=== PATIENT | male | born 1945 | race Caucasian/White ===

== ENCOUNTER 2021-01-29 17:25 | Inpatient (IN) | payer MEDICARE ==
[~2021-01-29] VITALS: Ht 167.6 cm; Wt 90.7 kg
[2021-01-29 19:11] LABS: BASOPHILS % 0.1 % (0.0-1.0); EOSINOPHILS # (AUTO) 0.1 (0.0-0.4); EOSINOPHILS % 0.7 % (0.0-6.0); HEMOGLOBIN 11.7 g/dL (14.0-18.0); LYMPHOCYTES # (AUTO) 0.5 (1.0-3.2); LYMPHOCYTES % 5.3 % (18.0-39.1); MEAN CORPUSCULAR HGB CONC 28.5 g/dL (31-35); MEAN CORPUSCULAR VOLUME 108.8 fL (81-99); MONOCYTES # (AUTO) 0.8 (0.2-0.8); MONOCYTES % 8.2 % (4.4-11.3); NEUTROPHILS % 85.1 % (38.7-80.0); PLATELET COUNT 233 x10e3/uL (140-360); RED BLOOD COUNT 3.77 x10e6/uL (4.3-5.7); RED CELL DISTRIBUTION WIDTH 17.3 % (11.7-14.4)
[2021-01-29] MEDS ORDERED: FUROSEMIDE INJ 10 MG/ML 4 ML VIAL IV ONE (19:15)
[2021-01-29 19:33] LABS: ALBUMIN 3.2 g/dL (3.5-5.0); ALBUMIN/GLOBULIN RATIO 0.7 (0.8-2.0); ANION GAP 13.7 mmol/L (8-16); CALCIUM 8.9 mg/dL (8.4-10.2); CREATININE, SERUM 0.96 mg/dL (0.72-1.25); POTASSIUM 3.7 mmol/L (3.5-5.1)
[2021-01-29 23:00] VITALS: BP 128/69
[2021-01-29 23:45] VITALS: BP 130/75
[2021-01-30] VITALS (7 sets, daily range): BP systolic 99–115; BP diastolic 62–79
[2021-01-30] MEDS ORDERED: TYLENOL325 MG PO (04:54)
[2021-01-30] MEDS ORDERED: AMIODARONE HCL100 MG PO (04:54)
[2021-01-30] MEDS ORDERED: ARICEPT5 MG PO (04:54)
[2021-01-30] MEDS ORDERED: MAGNESIUM OXID400 MG PO (04:54)
[2021-01-30] MEDS ORDERED: METOPROLOL TART25 MG PO (04:54)
[2021-01-30] MEDS ORDERED: ZESTRIL2.5 MG PO (04:54)
[2021-01-30] MEDS ORDERED: PLAVIX75 MG PO (04:54)
[2021-01-30] MEDS ORDERED: SPIRONOLACTONE25 MG PO (04:54)
[2021-01-30] MEDS ORDERED: LASIX40 MG PO (04:54)
[2021-01-30] MEDS ORDERED: ASPIRIN81 MG PO (04:54)
[2021-01-30] MEDS: ACETAMINOPHEN 325 MG TAB PO SCH ×2 (05:24→12:00)
[2021-01-30 07:43] LABS: BASOPHILS % 0.2 % (0.0-1.0); EOSINOPHILS # (AUTO) 0.1 (0.0-0.4); HEMATOCRIT 37.4 % (38.2-49.6); HEMOGLOBIN 10.9 g/dL (14.0-18.0); LYMPHOCYTES # (AUTO) 0.7 (1.0-3.2); LYMPHOCYTES % 7.9 % (18.0-39.1); MEAN CORPUSCULAR HEMOGLOBIN 31.1 pg (28-32); MEAN CORPUSCULAR HGB CONC 29.1 g/dL (31-35); MEAN CORPUSCULAR VOLUME 106.9 fL (81-99); MONOCYTES # (AUTO) 0.7 (0.2-0.8); MONOCYTES % 8.7 % (4.4-11.3); NEUTROPHILS # (AUTO) 6.7 (2.1-6.9); NEUTROPHILS % 81.5 % (38.7-80.0); PLATELET COUNT 220 x10e3/uL (140-360); RED CELL DISTRIBUTION WIDTH 17.1 % (11.7-14.4)
[2021-01-30 07:48] LABS: ALBUMIN 2.8 g/dL (3.5-5.0); ALBUMIN/GLOBULIN RATIO 0.8 (0.8-2.0); ANION GAP 12.6 mmol/L (8-16); CALCIUM 8.5 mg/dL (8.4-10.2); CREATININE, SERUM 0.92 mg/dL (0.72-1.25); POTASSIUM 3.6 mmol/L (3.5-5.1)
[2021-01-30] MEDS ORDERED: FUROSEMIDE 40 MG TAB PO SCH (09:00)
[2021-01-30] MEDS: SPIRONOLACTONE 25 MG TAB PO SCH (09:05)
[2021-01-30] MEDS: ASPIRIN 81 MG CHEW TAB PO SCH (09:06)
[2021-01-30] MEDS: AMIODARONE HCL 200 MG TAB PO SCH (09:06)
[2021-01-30] MEDS: MAGNESIUM OXIDE 400 MG TAB PO SCH (09:07)
[2021-01-30] MEDS: METOPROLOL TARTRATE 25 MG TAB PO SCH ×3 (09:07→21:00)
[2021-01-30] MEDS: CLOPIDOGREL BISULFATE 75 MG TAB PO SCH (09:08)
[2021-01-30] MEDS: LISINOPRIL 2.5 MG TAB PO SCH (09:08)
[2021-01-30] MEDS: FUROSEMIDE INJ 10 MG/ML 4 ML VIAL IV SCH ×2 (10:00→21:00)
[2021-01-30] MEDS ORDERED: POTASSIUM CHLORIDE 20 MEQ TAB CR PO PRN (10:45)
[2021-01-30] MEDS ORDERED: SODIUM CHLORIDE 0.9% 250ML 250 ML ONE (12:17)
[2021-01-30] MEDS: CEFTRIAXONE 1 GM in SODIUM CHLORIDE 0.9% 50ML 50 ML IV SCH (12:21)
[2021-01-30 13:21] LABS: ABG PH 7.42 (7.35-7.45)
[2021-01-30 13:22] LABS: ABG PCO2 71 mmHg (35-45)
[2021-01-30 13:23] LABS: ABG HCO3 46 mmol/L (22-26); ABG PO2 60 mmHg (80-105); ABG TCO2 48
[2021-01-30] MEDS: FAMOTIDINE 20 MG TAB PO SCH (17:09)
[2021-01-30] MEDS ORDERED: ACETAMINOPHEN 325 MG TAB PO PRN (17:15)
[2021-01-30] MEDS: DONEPEZIL HCL 5 MG TAB PO SCH (21:00)
[2021-01-31] VITALS (8 sets, daily range): BP systolic 105–117; BP diastolic 53–77
[2021-01-31 06:08] LABS: BASOPHILS % 0.3 % (0.0-1.0); EOSINOPHILS # (AUTO) 0.1 (0.0-0.4); EOSINOPHILS % 1.1 % (0.0-6.0); HEMATOCRIT 36.4 % (38.2-49.6); HEMOGLOBIN 10.7 g/dL (14.0-18.0); LYMPHOCYTES # (AUTO) 0.7 (1.0-3.2); LYMPHOCYTES % 9.8 % (18.0-39.1); MEAN CORPUSCULAR HEMOGLOBIN 31.3 pg (28-32); MEAN CORPUSCULAR HGB CONC 29.4 g/dL (31-35); MEAN CORPUSCULAR VOLUME 106.4 fL (81-99); MONOCYTES # (AUTO) 0.7 (0.2-0.8); MONOCYTES % 9.5 % (4.4-11.3); NEUTROPHILS # (AUTO) 5.9 (2.1-6.9); NEUTROPHILS % 78.8 % (38.7-80.0); PLATELET COUNT 201 x10e3/uL (140-360); RED BLOOD COUNT 3.42 x10e6/uL (4.3-5.7); RED CELL DISTRIBUTION WIDTH 16.9 % (11.7-14.4)
[2021-01-31 06:48] LABS: INR 1.06; PROTHROMBIN TIME 14.7 seconds (11.9-14.5)
[2021-01-31 07:03] LABS: ALBUMIN 2.7 g/dL (3.5-5.0); ALBUMIN/GLOBULIN RATIO 0.8 (0.8-2.0); ANION GAP 12.3 mmol/L (8-16); CALCIUM 8.3 mg/dL (8.4-10.2); CREATININE, SERUM 0.85 mg/dL (0.72-1.25); POTASSIUM 4.3 mmol/L (3.5-5.1)
[2021-01-31 07:51] LABS: PHOSPHORUS 2.9 MG/DL (2.3-4.7)
[2021-01-31] MEDS: ASPIRIN 81 MG CHEW TAB PO SCH (09:44)
[2021-01-31] MEDS: FUROSEMIDE INJ 10 MG/ML 4 ML VIAL IV SCH ×2 (09:44→21:00)
[2021-01-31] MEDS: SPIRONOLACTONE 25 MG TAB PO SCH (09:44)
[2021-01-31] MEDS: AMIODARONE HCL 200 MG TAB PO SCH (09:45)
[2021-01-31] MEDS: MAGNESIUM OXIDE 400 MG TAB PO SCH (09:45)
[2021-01-31] MEDS: CLOPIDOGREL BISULFATE 75 MG TAB PO SCH (09:45)
[2021-01-31] MEDS: METOPROLOL TARTRATE 25 MG TAB PO SCH ×2 (09:45→21:00)
[2021-01-31] MEDS: LISINOPRIL 2.5 MG TAB PO SCH (09:46)
[2021-01-31] MEDS: CEFTRIAXONE 1 GM in SODIUM CHLORIDE 0.9% 50ML 50 ML IV SCH ×4 (12:09→23:45)
[2021-01-31] MEDS: FAMOTIDINE 20 MG TAB PO SCH (16:12)
[2021-01-31] MEDS: DONEPEZIL HCL 5 MG TAB PO SCH (21:00)
[2021-02-01] VITALS (8 sets, daily range): BP systolic 99–124; BP diastolic 58–80
[2021-02-01 04:59] LABS: BASOPHILS % 0.3 % (0.0-1.0); EOSINOPHILS # (AUTO) 0.1 (0.0-0.4); EOSINOPHILS % 1.1 % (0.0-6.0); HEMATOCRIT 35.2 % (38.2-49.6); HEMOGLOBIN 10.1 g/dL (14.0-18.0); LYMPHOCYTES # (AUTO) 0.6 (1.0-3.2); LYMPHOCYTES % 9.3 % (18.0-39.1); MEAN CORPUSCULAR HGB CONC 28.7 g/dL (31-35); MONOCYTES # (AUTO) 0.6 (0.2-0.8); MONOCYTES % 8.5 % (4.4-11.3); NEUTROPHILS # (AUTO) 5.3 (2.1-6.9); NEUTROPHILS % 80.3 % (38.7-80.0); PLATELET COUNT 185 x10e3/uL (140-360); RED BLOOD COUNT 3.26 x10e6/uL (4.3-5.7); RED CELL DISTRIBUTION WIDTH 16.7 % (11.7-14.4)
[2021-02-01 05:31] LABS: ALBUMIN 2.7 g/dL (3.5-5.0); ALBUMIN/GLOBULIN RATIO 0.8 (0.8-2.0); ANION GAP 9.7 mmol/L (8-16); CALCIUM 8.1 mg/dL (8.4-10.2); CREATININE, SERUM 0.87 mg/dL (0.72-1.25); POTASSIUM 3.7 mmol/L (3.5-5.1)
[2021-02-01 07:39] LABS: ABG PH 7.41 (7.35-7.45)
[2021-02-01 07:40] LABS: ABG HCO3 46 mmol/L (22-26); ABG PCO2 73 mmHg (35-45); ABG PO2 75 mmHg (80-105); ABG TCO2 48
[2021-02-01] MEDS: LISINOPRIL 2.5 MG TAB PO SCH (08:44)
[2021-02-01] MEDS: MAGNESIUM OXIDE 400 MG TAB PO SCH (08:44)
[2021-02-01] MEDS: METOPROLOL TARTRATE 25 MG TAB PO SCH ×2 (08:44→20:47)
[2021-02-01] MEDS: AMIODARONE HCL 200 MG TAB PO SCH (08:44)
[2021-02-01] MEDS: ASPIRIN 81 MG CHEW TAB PO SCH (08:44)
[2021-02-01] MEDS: CLOPIDOGREL BISULFATE 75 MG TAB PO SCH (08:44)
[2021-02-01] MEDS: SPIRONOLACTONE 25 MG TAB PO SCH (08:44)
[2021-02-01] MEDS: FUROSEMIDE INJ 10 MG/ML 4 ML VIAL IV SCH ×2 (10:32→20:46)
[2021-02-01] MEDS: CEFTRIAXONE 1 GM in SODIUM CHLORIDE 0.9% 50ML 50 ML IV SCH ×2 (11:55→23:27)
[2021-02-01] MEDS: AZITHROMYCIN 250 MG TAB PO SCH (12:02)
[2021-02-01] MEDS: FAMOTIDINE 20 MG TAB PO SCH (15:02)
[2021-02-01] MEDS: DONEPEZIL HCL 5 MG TAB PO SCH (20:46)
[2021-02-02 03:26] VITALS: BP 108/60
[2021-02-02 07:10] VITALS: BP 111/46
[2021-02-02 07:50] VITALS: BP 111/46
[2021-02-02] MEDS: LISINOPRIL 2.5 MG TAB PO SCH (09:00)
[2021-02-02] MEDS ORDERED: AMIODARONE HCL 200 MG TAB PO SCH (09:00)
[2021-02-02] MEDS ORDERED: ACETAZOLAMIDE SODIUM 500 MG/VIAL IV NR (09:15)
[2021-02-02] MEDS: CLOPIDOGREL BISULFATE 75 MG TAB PO SCH (09:40)
[2021-02-02] MEDS: MAGNESIUM OXIDE 400 MG TAB PO SCH (09:40)
[2021-02-02] MEDS: FUROSEMIDE INJ 10 MG/ML 4 ML VIAL IV SCH ×2 (09:40→20:50)
[2021-02-02] MEDS: SPIRONOLACTONE 25 MG TAB PO SCH (09:40)
[2021-02-02] MEDS: METOPROLOL TARTRATE 25 MG TAB PO SCH ×2 (09:41→20:51)
[2021-02-02 11:00] VITALS: BP 125/63
[2021-02-02] MEDS: CEFTRIAXONE 1 GM in SODIUM CHLORIDE 0.9% 50ML 50 ML IV SCH ×2 (12:11→23:52)
[2021-02-02] MEDS: AZITHROMYCIN 250 MG TAB PO SCH (15:08)
[2021-02-02] MEDS: FAMOTIDINE 20 MG TAB PO SCH (17:27)
[2021-02-02 20:00] VITALS: BP 114/64
[2021-02-02] MEDS: DONEPEZIL HCL 5 MG TAB PO SCH (20:51)
[2021-02-03] VITALS (7 sets, daily range): BP systolic 105–126; BP diastolic 58–88
[2021-02-03 06:47] LABS: ANION GAP 8.9 mmol/L (8-16); CALCIUM 8.5 mg/dL (8.4-10.2); CREATININE, SERUM 0.84 mg/dL (0.72-1.25); POTASSIUM 3.9 mmol/L (3.5-5.1)
[2021-02-03] MEDS: FUROSEMIDE INJ 10 MG/ML 4 ML VIAL IV SCH ×2 (08:39→21:55)
[2021-02-03] MEDS: MAGNESIUM OXIDE 400 MG TAB PO SCH (08:39)
[2021-02-03] MEDS: SPIRONOLACTONE 25 MG TAB PO SCH (08:39)
[2021-02-03] MEDS: CLOPIDOGREL BISULFATE 75 MG TAB PO SCH (08:39)
[2021-02-03] MEDS: LISINOPRIL 2.5 MG TAB PO SCH (08:40)
[2021-02-03] MEDS: METOPROLOL TARTRATE 25 MG TAB PO SCH ×2 (08:40→21:00)
[2021-02-03] MEDS: CEFTRIAXONE 1 GM in SODIUM CHLORIDE 0.9% 50ML 50 ML IV SCH (12:23)
[2021-02-03] MEDS: AZITHROMYCIN 250 MG TAB PO SCH (12:23)
[2021-02-03] MEDS: FAMOTIDINE 20 MG TAB PO SCH (17:21)
[2021-02-03] MEDS: DONEPEZIL HCL 5 MG TAB PO SCH (21:00)
[2021-02-04] VITALS (9 sets, daily range): BP systolic 100–128; BP diastolic 62–84
[2021-02-04] MEDS: CEFTRIAXONE 1 GM in SODIUM CHLORIDE 0.9% 50ML 50 ML IV SCH ×2 (00:30→11:38)
[2021-02-04] MEDS: SPIRONOLACTONE 25 MG TAB PO SCH (08:42)
[2021-02-04] MEDS: METOPROLOL TARTRATE 25 MG TAB PO SCH ×2 (08:42→21:00)
[2021-02-04] MEDS: MAGNESIUM OXIDE 400 MG TAB PO SCH (08:42)
[2021-02-04] MEDS: FUROSEMIDE INJ 10 MG/ML 4 ML VIAL IV SCH (08:42)
[2021-02-04] MEDS: CLOPIDOGREL BISULFATE 75 MG TAB PO SCH (08:42)
[2021-02-04] MEDS: LISINOPRIL 2.5 MG TAB PO SCH (16:35)
[2021-02-04] MEDS: AZITHROMYCIN 250 MG TAB PO SCH (16:35)
[2021-02-04] MEDS: FUROSEMIDE 40 MG TAB PO SCH (16:37)
[2021-02-04] MEDS: FAMOTIDINE 20 MG TAB PO SCH (16:37)
[2021-02-04] MEDS: DONEPEZIL HCL 5 MG TAB PO SCH (21:00)
[2021-02-05] VITALS (8 sets, daily range): BP systolic 105–117; BP diastolic 57–72
[2021-02-05] MEDS: CEFTRIAXONE 1 GM in SODIUM CHLORIDE 0.9% 50ML 50 ML IV SCH ×2 (00:23→12:35)
[2021-02-05 05:35] LABS: BASOPHILS % 0.4 % (0.0-1.0); EOSINOPHILS # (AUTO) 0.1 (0.0-0.4); EOSINOPHILS % 1.5 % (0.0-6.0); HEMATOCRIT 35.8 % (38.2-49.6); HEMOGLOBIN 10.4 g/dL (14.0-18.0); LYMPHOCYTES # (AUTO) 0.8 (1.0-3.2); LYMPHOCYTES % 14.6 % (18.0-39.1); MEAN CORPUSCULAR HEMOGLOBIN 30.9 pg (28-32); MEAN CORPUSCULAR HGB CONC 29.1 g/dL (31-35); MEAN CORPUSCULAR VOLUME 106.2 fL (81-99); MONOCYTES # (AUTO) 0.5 (0.2-0.8); NEUTROPHILS # (AUTO) 3.8 (2.1-6.9); NEUTROPHILS % 73.3 % (38.7-80.0); PLATELET COUNT 161 x10e3/uL (140-360); RED BLOOD COUNT 3.37 x10e6/uL (4.3-5.7); RED CELL DISTRIBUTION WIDTH 16.8 % (11.7-14.4)
[2021-02-05 06:01] LABS: ANION GAP 10.8 mmol/L (8-16); CALCIUM 8.3 mg/dL (8.4-10.2); CREATININE, SERUM 0.77 mg/dL (0.72-1.25); POTASSIUM 3.8 mmol/L (3.5-5.1)
[2021-02-05] MEDS: FUROSEMIDE 40 MG TAB PO SCH ×2 (06:23→16:59)
[2021-02-05] MEDS: SPIRONOLACTONE 25 MG TAB PO SCH (08:41)
[2021-02-05] MEDS: CLOPIDOGREL BISULFATE 75 MG TAB PO SCH (08:41)
[2021-02-05] MEDS: MAGNESIUM OXIDE 400 MG TAB PO SCH (08:41)
[2021-02-05] MEDS: LISINOPRIL 2.5 MG TAB PO SCH (08:42)
[2021-02-05] MEDS: METOPROLOL TARTRATE 25 MG TAB PO SCH ×2 (08:43→21:00)
[2021-02-05] MEDS: AZITHROMYCIN 250 MG TAB PO SCH (12:35)
[2021-02-05] MEDS: FAMOTIDINE 20 MG TAB PO SCH (16:58)
[2021-02-05] MEDS: DONEPEZIL HCL 5 MG TAB PO SCH (21:59)
[2021-02-06] VITALS (7 sets, daily range): BP systolic 100–120; BP diastolic 55–65
[2021-02-06] MEDS: CEFTRIAXONE 1 GM in SODIUM CHLORIDE 0.9% 50ML 50 ML IV SCH ×2 (00:20→12:24)
[2021-02-06] MEDS: FUROSEMIDE 40 MG TAB PO SCH ×2 (06:03→18:28)
[2021-02-06 06:42] LABS: BASOPHILS % 0.4 % (0.0-1.0); EOSINOPHILS # (AUTO) 0.1 (0.0-0.4); EOSINOPHILS % 1.4 % (0.0-6.0); HEMOGLOBIN 10.9 g/dL (14.0-18.0); LYMPHOCYTES # (AUTO) 0.8 (1.0-3.2); LYMPHOCYTES % 13.7 % (18.0-39.1); MEAN CORPUSCULAR HEMOGLOBIN 30.6 pg (28-32); MEAN CORPUSCULAR HGB CONC 28.7 g/dL (31-35); MEAN CORPUSCULAR VOLUME 106.7 fL (81-99); MONOCYTES # (AUTO) 0.6 (0.2-0.8); MONOCYTES % 10.5 % (4.4-11.3); NEUTROPHILS # (AUTO) 4.1 (2.1-6.9); NEUTROPHILS % 73.6 % (38.7-80.0); PLATELET COUNT 156 x10e3/uL (140-360); RED BLOOD COUNT 3.56 x10e6/uL (4.3-5.7); RED CELL DISTRIBUTION WIDTH 16.6 % (11.7-14.4)
[2021-02-06 07:02] LABS: ANION GAP 13.8 mmol/L (8-16); CREATININE, SERUM 0.87 mg/dL (0.72-1.25); POTASSIUM 3.8 mmol/L (3.5-5.1)
[2021-02-06 08:46] LABS: ANISOCYTOSIS MODERATE; HYPOCHROMASIA SLIGHT; PLATELET ESTIMATE ADEQUATE; PLATELET MORPHOLOGY COMMENT NORMAL; RBC MORPHOLOGY COMMENT ABNORMAL
[2021-02-06] MEDS: MAGNESIUM OXIDE 400 MG TAB PO SCH (10:27)
[2021-02-06] MEDS: LISINOPRIL 2.5 MG TAB PO SCH (10:27)
[2021-02-06] MEDS: CLOPIDOGREL BISULFATE 75 MG TAB PO SCH (10:27)
[2021-02-06] MEDS: METOPROLOL TARTRATE 25 MG TAB PO SCH ×2 (10:27→20:34)
[2021-02-06] MEDS: SPIRONOLACTONE 25 MG TAB PO SCH (10:27)
[2021-02-06] MEDS: AZITHROMYCIN 250 MG TAB PO SCH (14:01)
[2021-02-06] MEDS: FAMOTIDINE 20 MG TAB PO SCH (18:28)
[2021-02-06] MEDS: DONEPEZIL HCL 5 MG TAB PO SCH (20:39)
[2021-02-07] VITALS (8 sets, daily range): BP systolic 100–122; BP diastolic 51–69
[2021-02-07 05:27] LABS: BASOPHILS % 0.5 % (0.0-1.0); EOSINOPHILS # (AUTO) 0.1 (0.0-0.4); EOSINOPHILS % 1.1 % (0.0-6.0); HEMATOCRIT 36.8 % (38.2-49.6); HEMOGLOBIN 10.9 g/dL (14.0-18.0); LYMPHOCYTES # (AUTO) 0.8 (1.0-3.2); LYMPHOCYTES % 13.8 % (18.0-39.1); MEAN CORPUSCULAR HEMOGLOBIN 30.5 pg (28-32); MEAN CORPUSCULAR HGB CONC 29.6 g/dL (31-35); MEAN CORPUSCULAR VOLUME 103.1 fL (81-99); MONOCYTES # (AUTO) 0.6 (0.2-0.8); MONOCYTES % 10.7 % (4.4-11.3); NEUTROPHILS # (AUTO) 4.1 (2.1-6.9); NEUTROPHILS % 73.4 % (38.7-80.0); PLATELET COUNT 156 x10e3/uL (140-360); RED BLOOD COUNT 3.57 x10e6/uL (4.3-5.7); RED CELL DISTRIBUTION WIDTH 16.5 % (11.7-14.4)
[2021-02-07] MEDS: FUROSEMIDE 40 MG TAB PO SCH ×2 (05:53→17:59)
[2021-02-07 06:35] LABS: ALBUMIN 2.9 g/dL (3.5-5.0); ALBUMIN/GLOBULIN RATIO 0.8 (0.8-2.0); CREATININE, SERUM 0.82 mg/dL (0.72-1.25)
[2021-02-07] MEDS: METOPROLOL TARTRATE 25 MG TAB PO SCH ×2 (09:34→20:48)
[2021-02-07] MEDS: SPIRONOLACTONE 25 MG TAB PO SCH (09:35)
[2021-02-07] MEDS: LISINOPRIL 2.5 MG TAB PO SCH (09:35)
[2021-02-07] MEDS: CLOPIDOGREL BISULFATE 75 MG TAB PO SCH (09:35)
[2021-02-07] MEDS: MAGNESIUM OXIDE 400 MG TAB PO SCH (09:35)
[2021-02-07] MEDS: CEFTRIAXONE 1 GM in SODIUM CHLORIDE 0.9% 50ML 50 ML IV SCH ×3 (13:08)
[2021-02-07] MEDS: AZITHROMYCIN 250 MG TAB PO SCH (13:08)
[2021-02-07] MEDS: FAMOTIDINE 20 MG TAB PO SCH (16:11)
[2021-02-07] MEDS: DONEPEZIL HCL 5 MG TAB PO SCH (20:48)
[2021-02-08] VITALS (10 sets, daily range): BP systolic 92–115; BP diastolic 51–76
[2021-02-08 05:12] LABS: BASOPHILS % 0.5 % (0.0-1.0); EOSINOPHILS # (AUTO) 0.1 (0.0-0.4); EOSINOPHILS % 1.6 % (0.0-6.0); HEMATOCRIT 38.4 % (38.2-49.6); HEMOGLOBIN 11.3 g/dL (14.0-18.0); LYMPHOCYTES # (AUTO) 0.9 (1.0-3.2); LYMPHOCYTES % 15.5 % (18.0-39.1); MEAN CORPUSCULAR HGB CONC 29.4 g/dL (31-35); MEAN CORPUSCULAR VOLUME 105.5 fL (81-99); MONOCYTES # (AUTO) 0.6 (0.2-0.8); MONOCYTES % 10.2 % (4.4-11.3); NEUTROPHILS # (AUTO) 4.2 (2.1-6.9); NEUTROPHILS % 71.9 % (38.7-80.0); PLATELET COUNT 141 x10e3/uL (140-360); RED BLOOD COUNT 3.64 x10e6/uL (4.3-5.7); RED CELL DISTRIBUTION WIDTH 16.4 % (11.7-14.4)
[2021-02-08] MEDS: FUROSEMIDE 40 MG TAB PO SCH ×2 (05:55→17:39)
[2021-02-08 06:12] LABS: ALBUMIN 3.1 g/dL (3.5-5.0); ALBUMIN/GLOBULIN RATIO 0.9 (0.8-2.0); ANION GAP 13.1 mmol/L (8-16); CALCIUM 8.5 mg/dL (8.4-10.2); CREATININE, SERUM 0.96 mg/dL (0.72-1.25); POTASSIUM 4.1 mmol/L (3.5-5.1)
[2021-02-08] MEDS: SPIRONOLACTONE 25 MG TAB PO SCH (09:44)
[2021-02-08] MEDS: MAGNESIUM OXIDE 400 MG TAB PO SCH (09:45)
[2021-02-08] MEDS: METOPROLOL TARTRATE 25 MG TAB PO SCH ×2 (09:45→22:00)
[2021-02-08] MEDS: LISINOPRIL 2.5 MG TAB PO SCH (09:45)
[2021-02-08] MEDS: CLOPIDOGREL BISULFATE 75 MG TAB PO SCH (09:45)
[2021-02-08] MEDS: CEFTRIAXONE 1 GM in SODIUM CHLORIDE 0.9% 50ML 50 ML IV SCH ×3 (12:49)
[2021-02-08] MEDS: FAMOTIDINE 20 MG TAB PO SCH (17:39)
[2021-02-08] MEDS: DONEPEZIL HCL 5 MG TAB PO SCH (21:59)
[2021-02-09] VITALS (7 sets, daily range): BP systolic 101–113; BP diastolic 56–64
[2021-02-09] MEDS: CEFTRIAXONE 1 GM in SODIUM CHLORIDE 0.9% 50ML 50 ML IV SCH (00:20)
[2021-02-09] MEDS: FUROSEMIDE 40 MG TAB PO SCH ×2 (05:34→16:37)
[2021-02-09 06:11] LABS: BASOPHILS % 0.5 % (0.0-1.0); EOSINOPHILS # (AUTO) 0.1 (0.0-0.4); EOSINOPHILS % 2.1 % (0.0-6.0); HEMATOCRIT 39.6 % (38.2-49.6); HEMOGLOBIN 11.6 g/dL (14.0-18.0); LYMPHOCYTES # (AUTO) 0.8 (1.0-3.2); LYMPHOCYTES % 13.9 % (18.0-39.1); MEAN CORPUSCULAR HEMOGLOBIN 30.9 pg (28-32); MEAN CORPUSCULAR HGB CONC 29.3 g/dL (31-35); MEAN CORPUSCULAR VOLUME 105.3 fL (81-99); MONOCYTES # (AUTO) 0.6 (0.2-0.8); MONOCYTES % 10.2 % (4.4-11.3); NEUTROPHILS # (AUTO) 4.2 (2.1-6.9); NEUTROPHILS % 73.1 % (38.7-80.0); PLATELET COUNT 158 x10e3/uL (140-360); RED BLOOD COUNT 3.76 x10e6/uL (4.3-5.7); RED CELL DISTRIBUTION WIDTH 16.4 % (11.7-14.4)
[2021-02-09 06:31] LABS: ALBUMIN 3.1 g/dL (3.5-5.0); ALBUMIN/GLOBULIN RATIO 0.9 (0.8-2.0); ANION GAP 11.3 mmol/L (8-16); CALCIUM 8.8 mg/dL (8.4-10.2); CREATININE, SERUM 0.75 mg/dL (0.72-1.25); POTASSIUM 4.3 mmol/L (3.5-5.1)
[2021-02-09] MEDS: SPIRONOLACTONE 25 MG TAB PO SCH (10:41)
[2021-02-09] MEDS: METOPROLOL TARTRATE 25 MG TAB PO SCH ×2 (10:42→21:44)
[2021-02-09] MEDS: CLOPIDOGREL BISULFATE 75 MG TAB PO SCH (10:42)
[2021-02-09] MEDS: LISINOPRIL 2.5 MG TAB PO SCH (10:42)
[2021-02-09] MEDS: MAGNESIUM OXIDE 400 MG TAB PO SCH (10:42)
[2021-02-09] MEDS: FAMOTIDINE 20 MG TAB PO SCH (16:37)
[2021-02-09] MEDS: DONEPEZIL HCL 5 MG TAB PO SCH (21:31)
[2021-02-10] VITALS (8 sets, daily range): BP systolic 99–122; BP diastolic 58–76
[2021-02-10] MEDS: FUROSEMIDE 40 MG TAB PO SCH ×2 (06:00→17:14)
[2021-02-10 06:26] LABS: BASOPHILS % 0.6 % (0.0-1.0); EOSINOPHILS # (AUTO) 0.1 (0.0-0.4); HEMATOCRIT 39.8 % (38.2-49.6); HEMOGLOBIN 11.8 g/dL (14.0-18.0); LYMPHOCYTES # (AUTO) 0.9 (1.0-3.2); LYMPHOCYTES % 14.3 % (18.0-39.1); MEAN CORPUSCULAR HEMOGLOBIN 30.8 pg (28-32); MEAN CORPUSCULAR HGB CONC 29.6 g/dL (31-35); MEAN CORPUSCULAR VOLUME 103.9 fL (81-99); MONOCYTES # (AUTO) 0.8 (0.2-0.8); MONOCYTES % 11.8 % (4.4-11.3); NEUTROPHILS # (AUTO) 4.5 (2.1-6.9); NEUTROPHILS % 70.8 % (38.7-80.0); PLATELET COUNT 165 x10e3/uL (140-360); RED BLOOD COUNT 3.83 x10e6/uL (4.3-5.7); RED CELL DISTRIBUTION WIDTH 16.2 % (11.7-14.4)
[2021-02-10 06:50] LABS: ALBUMIN 3.1 g/dL (3.5-5.0); ALBUMIN/GLOBULIN RATIO 0.8 (0.8-2.0); ANION GAP 15.6 mmol/L (8-16); CALCIUM 9.3 mg/dL (8.4-10.2); CREATININE, SERUM 0.8 mg/dL (0.72-1.25); POTASSIUM 4.6 mmol/L (3.5-5.1)
[2021-02-10] MEDS: MAGNESIUM OXIDE 400 MG TAB PO SCH (09:16)
[2021-02-10] MEDS: SPIRONOLACTONE 25 MG TAB PO SCH (09:16)
[2021-02-10] MEDS: CLOPIDOGREL BISULFATE 75 MG TAB PO SCH (09:16)
[2021-02-10] MEDS: LISINOPRIL 2.5 MG TAB PO SCH (09:16)
[2021-02-10] MEDS: METOPROLOL TARTRATE 25 MG TAB PO SCH ×2 (09:17→21:08)
[2021-02-10] MEDS: FAMOTIDINE 20 MG TAB PO SCH (17:14)
[2021-02-10] MEDS: DONEPEZIL HCL 5 MG TAB PO SCH (21:08)
[2021-02-11] VITALS (8 sets, daily range): BP systolic 96–114; BP diastolic 52–63
[2021-02-11] MEDS: FUROSEMIDE 40 MG TAB PO SCH ×2 (05:28→17:18)
[2021-02-11] MEDS: METOPROLOL TARTRATE 25 MG TAB PO SCH ×2 (08:36→21:00)
[2021-02-11] MEDS: SPIRONOLACTONE 25 MG TAB PO SCH (08:41)
[2021-02-11] MEDS: MAGNESIUM OXIDE 400 MG TAB PO SCH (08:41)
[2021-02-11] MEDS: CLOPIDOGREL BISULFATE 75 MG TAB PO SCH (08:41)
[2021-02-11] MEDS: LISINOPRIL 2.5 MG TAB PO SCH (08:42)
[2021-02-11] MEDS: FAMOTIDINE 20 MG TAB PO SCH (17:18)
[2021-02-11] MEDS: DONEPEZIL HCL 5 MG TAB PO SCH (21:45)
[2021-02-12] VITALS: BP 114/70
[2021-02-12 04:00] VITALS: BP 112/67
[2021-02-12 05:59] LABS: BASOPHILS % 0.4 % (0.0-1.0); EOSINOPHILS # (AUTO) 0.2 (0.0-0.4); EOSINOPHILS % 3.1 % (0.0-6.0); HEMATOCRIT 39.3 % (38.2-49.6); HEMOGLOBIN 11.8 g/dL (14.0-18.0); LYMPHOCYTES # (AUTO) 0.9 (1.0-3.2); LYMPHOCYTES % 17.8 % (18.0-39.1); MEAN CORPUSCULAR HEMOGLOBIN 30.5 pg (28-32); MEAN CORPUSCULAR VOLUME 101.6 fL (81-99); MONOCYTES # (AUTO) 0.6 (0.2-0.8); MONOCYTES % 11.8 % (4.4-11.3); NEUTROPHILS # (AUTO) 3.4 (2.1-6.9); NEUTROPHILS % 66.3 % (38.7-80.0); PLATELET COUNT 175 x10e3/uL (140-360); RED BLOOD COUNT 3.87 x10e6/uL (4.3-5.7); RED CELL DISTRIBUTION WIDTH 16.3 % (11.7-14.4)
[2021-02-12] MEDS: FUROSEMIDE 40 MG TAB PO SCH (06:24)
[2021-02-12 06:26] LABS: ALBUMIN 3.2 g/dL (3.5-5.0); ALBUMIN/GLOBULIN RATIO 0.9 (0.8-2.0); ANION GAP 13.4 mmol/L (8-16); CALCIUM 9.2 mg/dL (8.4-10.2); CREATININE, SERUM 0.94 mg/dL (0.72-1.25); POTASSIUM 4.4 mmol/L (3.5-5.1)
[2021-02-12 07:51] VITALS: BP 107/65
[2021-02-12] MEDS: LISINOPRIL 2.5 MG TAB PO SCH (09:00)
[2021-02-12 09:16] VITALS: BP 107/65
[2021-02-12] MEDS: SPIRONOLACTONE 25 MG TAB PO SCH (09:39)
[2021-02-12] MEDS: MAGNESIUM OXIDE 400 MG TAB PO SCH (09:40)
[2021-02-12] MEDS: CLOPIDOGREL BISULFATE 75 MG TAB PO SCH (09:40)
[2021-02-12] MEDS: METOPROLOL TARTRATE 25 MG TAB PO SCH (09:40)
[2021-02-12 11:41] VITALS: BP 94/52
[2021-02-12 16:08] VITALS: BP 114/65
== END 2021-02-12 16:30 | DRG 177 ==
LOC: ER 17:30 → ERHOLD 19:37 → MED/SURG 22:44
PROVIDERS: ADMIT Internal Medicine; ATTEND Internal Medicine
DX: J69.0 Pneumonitis due to inhalation of food and vomit (principal); I50.43 Acute on chronic combined systolic (congestive) and diastolic (congestive) heart failure; J96.21 Acute and chronic respiratory failure with hypoxia; G93.41 Metabolic encephalopathy; L03.116 Cellulitis of left lower limb; L03.115 Cellulitis of right lower limb; F05 Delirium due to known physiological condition; Z99.81 Dependence on supplemental oxygen; I87.2 Venous insufficiency (chronic) (peripheral); L89.152 Pressure ulcer of sacral region, stage 2; I08.2 Rheumatic disorders of both aortic and tricuspid valves; I11.0 Hypertensive heart disease with heart failure; F03.90 Unspecified dementia, unspecified severity, without behavioral disturbance, psychotic disturbance, mood disturbance, and anxiety; F06.8 Other specified mental disorders due to known physiological condition; I25.10 Atherosclerotic heart disease of native coronary artery without angina pectoris; Z95.5 Presence of coronary angioplasty implant and graft; Z74.09 Other reduced mobility; I27.20 Pulmonary hypertension, unspecified; J44.9 Chronic obstructive pulmonary disease, unspecified
CPT/HCPCS: 36415; 36600; 71045; 74230; 80048; 80053; 82805; 83735; 83880; 84100; 85025; 85610; 93005; 93306; 94799; 97139; 99251; 99285; J0456; J0696; J1940; J7050; U0002